=== PATIENT | female | born 1965 | race Caucasian/White ===

== ENCOUNTER → 2018-07-29 18:53 | Outpatient (CLI) | payer OTHER | END | disposition home or self-care (01) | LOC: D.MAMMO 07-28 09:15 | DX: Z12.31 Encounter for screening mammogram for malignant neoplasm of breast (principal) ==

== ENCOUNTER 2020-12-12 20:05 | Outpatient (CLI) | payer BC | END 2020-12-12 23:59 | disposition home or self-care (01) | LOC: D.MAMMO 20:05 | PROVIDERS: ATTEND Family Medicine | DX: Z12.31 Encounter for screening mammogram for malignant neoplasm of breast (principal) ==